=== PATIENT | female | born 1985 | race Two or more races ===

== ENCOUNTER 2024-08-15 10:33 | Emergency (ER) | payer MEDICAID ==
[~2024-08-15] VITALS: Ht 165.1 cm; Wt 65.7 kg
[2024-08-15 10:40] VITALS: BP 126/85; TEMP 98.1; O2SAT 100
[2024-08-15 10:42] VITALS: PULSE 74; RESP 18; O2SAT 100
[2024-08-15 11:26] LABS: CLARITY URINE CLEAR (CLEAR); COLOR URINE YELLOW (YELLOW); GLUCOSE URINE NEGATIVE (NEGATIVE); KETONES URINE NEGATIVE (NEGATIVE); LEUKOCYTE ESTERASE URINE 2+ (NEGATIVE); NITRITE URINE NEGATIVE (NEGATIVE); OCCULT BLOOD URINE NEGATIVE (NEGATIVE); PH URINE 5.5 (4.5-8.0); PROTEIN URINE NEGATIVE (NEGATIVE); SPECIFIC GRAVITY URINE 1.006 (1.005-1.030); UROBILINOGEN URINE 0.2 E.U./dL (0.2-1.0)
[2024-08-15 11:30] LABS: BASOPHILS % 0.5 % (0.0-2.0); HEMATOCRIT. 43.7 % (36.0-48.0); HEMOGLOBIN. 14.6 g/dL (12.0-16.0); LYMPHOCYTES % 39.3 % (20.0-50.0); MEAN CORPUSCULAR HEMOGLOBIN 31.8 pg (28.0-32.0); MEAN CORPUSCULAR HGB CONC 33.3 g/dL (31.0-37.0); MEAN CORPUSCULAR VOLUME 95.5 fL (81.0-99.0); MEAN PLATELET VOLUME 8.5 fl (7.4-10.4); MONOCYTES % 10.7 % (2.0-8.0); NEUTROPHILS % 48.5 % (40.0-76.0); PLATELET 289 x1000/uL (130-400); RED BLOOD CELL COUNT 4.58 mill/uL (4.2-5.4); RED CELL DISTRIBUTION WIDTH 13.3 % (11.6-14.6); WHITE BLOOD COUNT 6.1 x1000/uL (4.5-11.0)
[2024-08-15 11:40] LABS: CHLORIDE 107 mEq/L (98-107); POTASSIUM 3.8 mEq/L (3.5-5.1); SODIUM 139 mEq/L (136-145)
[2024-08-15 11:41] LABS: CALCIUM 9.9 mg/dL (8.7-10.4); CARBON DIOXIDE 24 mEq/L (21-32)
[2024-08-15 11:46] LABS: CREATININE 0.9 mg/dL (0.6-1.0); GLUCOSE 89 mg/dL (70-105); UREA NITROGEN BLOOD 9 mg/dL (9-23)
[2024-08-15 11:46] LABS: BACTERIA URINE 1+; RBC URINE 0-2 /hpf (0-2); SQUAMOUS EPITHELIAL CELL URINE 1+ /lpf (RARE/1+); YEAST URINE NONE SEEN
[2024-08-15] MEDS: ONDANSETRON HCL 4MG/2ML INJ IV STA (12:04)
[2024-08-15] MEDS: IOHEXOL-300 100 ML BOTTLE ONE (13:12)
== END 2024-08-15 14:08 | disposition admitted as inpatient to this hospital (09) ==
LOC: ER 10:33 → EDBEDREQ 11:35 → ER 14:08
DX: R59.1 Generalized enlarged lymph nodes (principal)
CPT/HCPCS: 99285; 96374; 70491; 80048; 81003; 81025; 85025; 36415; Q9967; J2405

== ENCOUNTER 2025-05-19 12:54 | Emergency (ER) | payer MEDICAID ==
[~2025-05-19] VITALS: Ht 167.6 cm; Wt 75.0 kg
[2025-05-19 12:57] VITALS: O2SAT 100
[2025-05-19 15:23] LABS: BASOPHILS % 1.1 % (0.0-2.0); EOSINOPHILS % 1.2 % (0.0-5.0); HEMATOCRIT. 39.7 % (36.0-48.0); HEMOGLOBIN. 13.3 g/dL (12.0-16.0); LYMPHOCYTES % 32.2 % (20.0-50.0); MEAN PLATELET VOLUME 8.9 fl (7.4-10.4); MONOCYTES % 12.7 % (2.0-8.0); NEUTROPHILS % 52.8 % (40.0-76.0); PLATELET 265 x1000/uL (130-400); RED BLOOD CELL COUNT 4.29 mill/uL (4.2-5.4); RED CELL DISTRIBUTION WIDTH 13.9 % (11.6-14.6)
[2025-05-19 15:37] LABS: CLARITY URINE CLEAR (CLEAR); GLUCOSE URINE NEGATIVE (NEGATIVE); KETONES URINE NEGATIVE (NEGATIVE); LEUKOCYTE ESTERASE URINE 1+ (NEGATIVE); NITRITE URINE NEGATIVE (NEGATIVE); OCCULT BLOOD URINE NEGATIVE (NEGATIVE); PH URINE 6.0 (4.5-8.0); PROTEIN URINE NEGATIVE (NEGATIVE); SPECIFIC GRAVITY URINE 1.007 (1.005-1.030); UROBILINOGEN URINE 0.2 E.U./dL (0.2-1.0)
[2025-05-19 15:37] LABS: CREATININE 0.8 mg/dL (0.6-1.0)
[2025-05-19 15:38] LABS: UREA NITROGEN BLOOD < 5 mg/dL (9-23)
[2025-05-19 15:39] LABS: ASPARTATE AMINOTRANSFERASE 17 IU/L (<34)
[2025-05-19 15:40] LABS: BILIRUBIN DIRECT < 0.1 mg/dL (<=3.0); BILIRUBIN TOTAL 0.5 mg/dL (0.1-1.0); PROTEIN TOTAL 6.5 g/dL (6.0-8.3)
[2025-05-19 15:44] LABS: HCG SCREEN NEGATIVE
[2025-05-19 16:01] LABS: COLOR URINE STRAW (YELLOW)
[2025-05-19 16:02] LABS: RBC URINE NONE SEEN /hpf (0-2)
[2025-05-19 16:03] LABS: BACTERIA URINE TRACE; SQUAMOUS EPITHELIAL CELL URINE 1+ /lpf (RARE/1+)
[2025-05-19] MEDS ORDERED: NITR-87 MT (16:11)
[2025-05-19] MEDS: KETOROLAC 30MG/ML VIAL IM SCH (16:18)
[2025-05-19 17:02] VITALS: BP 118/80; PULSE 88; RESP 18; TEMP 36.9; O2SAT 100
== END 2025-05-19 17:03 | disposition home or self-care (01) ==
LOC: ER 12:54
DX: D25.9 Leiomyoma of uterus, unspecified (principal); D27.1 Benign neoplasm of left ovary
CPT/HCPCS: 99285; 76830; 76856; 80076; 80048; 81003; 81025; 84703; 83690; 85025; 36415; 96372; J1885; A4606